=== PATIENT | female | born 1990 | race Caucasian/White ===

== ENCOUNTER → 2019-04-02 13:03 | Outpatient (CLI) | payer OTHER, MEDICAID, SELFPAY ==
--- NOTE | 2019-04-02 | DI.RAD.S_ITS ---
PROCEDURE: XR THORACIC SPINE 3V INDICATIONS: NECK PAIN TECHNIQUE: 3 views of the thoracic spine were acquired. COMPARISON: None. FINDINGS: Bones: No fractures or dislocations. No suspicious bony lesions. Soft tissues: No paravertebral stripe thickening. IMPRESSION: Negative exam Dictated by: Mic Ross M.D. on 04/02/2019 at 14:23 Approved by: Mic Ross M.D. on 04/02/2019 at 14:26
--- NOTE | 2019-04-02 | DI.RAD.S_ITS ---
PROCEDURE: XR CERVICAL SPINE 2V OR 3V INDICATIONS: NECK PAIN TECHNIQUE: 3 view(s) of the cervical spine were acquired. COMPARISON: None. FINDINGS: Bones: No fractures or dislocations to the T1 level. The lateral masses of C1 appear intact on the odontoid view. No suspicious bony lesions. Loss of lordosis which could be related to muscle spasm, rigidity or simply positional. Soft tissues: No prevertebral soft tissue swelling. IMPRESSION: Loss of lordosis otherwise normal cervical spine series. Dictated by: Pierre Baker [facility] Interpreted: Stuart Alcazar MD on 04/02/2019 at 16:43 Approved by: Stuart Alcazar M.D. on 04/03/2019 at 9:41
== END ==
PROVIDERS: PCP Family Medicine; Visit Provider Family Medicine
DX: M54.2 Cervicalgia (principal); R07.9 Chest pain, unspecified; G44.229 Chronic tension-type headache, not intractable; S46.819A Strain of other muscles, fascia and tendons at shoulder and upper arm level, unspecified arm, initial encounter
CPT/HCPCS: 72040; 72072

== ENCOUNTER → 2025-09-09 11:46 | Outpatient (ROUT) | payer SELFPAY ==
[2025-09-09 11:53] LABS: Add Manual Diff / Slide Review NO; Hematocrit 40.6 % (36-46); Hemoglobin 13.8 g/dL (12.0-16.0); Lymphocytes Absolute Auto 1800 /uL (1100-4500); Mean Corpuscular HGB Conc 33.9 % (30-36); Mean Corpuscular Hemoglobin 31.2 PG (26-34); Mean Corpuscular Volume 91.8 fL (80-100); Platelet Count 262 X10^3/uL (150-400)
[2025-09-09 12:19] LABS: Alanine Aminotransferase 15 IU/L (<35); Albumin 4.8 g/dL (3.5-5.0); Albumin Globulin Ratio 1.7 (1.0-2.8); Alkaline Phosphatase 53 U/L (38-126); Blood Urea Nitrogen 18 mg/dL (7-17); Calcium 9.7 mg/dL (8.4-10.2); Carbon Dioxide 19 mmol/L (22-32); Chloride 106 mmol/L (98-107); Estimated Glomerular Filt Rate > 60 mL/min (>60); Globulin 2.9 g/dL (1.7-4.1); Glucose 99 mg/dL (70-99); HEMOLYSIS 27 (0-50); Lipase 162 U/L (23-300); Potassium 4.1 mmol/L (3.4-5.1); Sodium 138 mmol/L (137-145); Total Protein 7.7 g/dL (6.3-8.2)
== END ==
PROVIDERS: PCP Family Medicine; Visit Provider Family Medicine
DX: N94.9 Unspecified condition associated with female genital organs and menstrual cycle (principal); Z13.0 Encounter for screening for diseases of the blood and blood-forming organs and certain disorders involving the immune mechanism; R10.30 Lower abdominal pain, unspecified; R10.20 Pelvic and perineal pain unspecified side; T83.32XA Displacement of intrauterine contraceptive device, initial encounter
CPT/HCPCS: 80053; 83690; 85025; 86140

== ENCOUNTER → 2025-09-09 11:57 | Outpatient (CLI) | payer OTHER, SELFPAY | LOC: US 11:59 | PROVIDERS: PCP Family Medicine; Referring Provider Family Medicine; Visit Provider Family Medicine | DX: T83.32XA Displacement of intrauterine contraceptive device, initial encounter (principal); R10.20 Pelvic and perineal pain unspecified side; R10.30 Lower abdominal pain, unspecified; N94.9 Unspecified condition associated with female genital organs and menstrual cycle; Z13.0 Encounter for screening for diseases of the blood and blood-forming organs and certain disorders involving the immune mechanism | CPT/HCPCS: 80053; 83690; 85025; 86140 ==